=== PATIENT | male | born 1955 | race Caucasian/White ===

== ENCOUNTER 2021-04-03 15:54 | Emergency (ER) | payer MEDICARE, MEDICAID, SELFPAY ==
--- NOTE | ~2021-04-03 | CT_ITS ---
EXAMINATION: CT ABDOMEN AND PELVIS WITHOUT CONTRAST CLINICAL INFORMATION: Left lower quadrant pain. COMPARISON: None TECHNIQUE: Multidetector volumetric imaging was performed from the superior aspect of the liver through the pubic symphysis. Sagittal and coronal reformatted images were obtained on the technologist's workstation. This CT examination was performed using dose optimization techniques as appropriate, variously including the following: *Automated exposure control *Adjustment of mA and/or kV according to patient size (this includes techniques or standardized protocols for targeted exams where dose is matched to indication/reason for exam; i.e. extremities or head) *Use of iterative reconstruction technique DLP: 575 mGy-cm FINDINGS: LUNG BASES: The lung bases are clear. 4 mm nodule is seen in the right lower lobe axial image 4/6. Heart size is normal. LIVER, GALLBLADDER, AND BILIARY TREE: The liver is normal in size, shape, and attenuation. No focal hepatic lesion or biliary ductal dilatation is present. The gallbladder is unremarkable with no evidence of radiopaque gallstones, gallbladder wall thickening, or obvious pericholecystic inflammatory changes. PANCREAS: Unremarkable. SPLEEN: Unremarkable. ADRENAL GLANDS: Unremarkable. KIDNEYS AND URETERS: The kidneys are normal in size, shape, and attenuation. There is a partially exophytic 8 mm cyst upper pole right kidney. A nonobstructive 4 mm radiopaque calculi seen midpole right kidney and 8 tubular radiopaque calculi lower pole left kidney. There is no caliectasis or hydronephrosis.. BLADDER: Unremarkable. GASTROINTESTINAL TRACT: There is fluid-filled small bowel loops and colon without distention. No free air or free fluid.. Appendix is not visualized. The stomach is nondistended. ABDOMINAL WALL: No significant hernia is appreciated. LYMPH NODES: Normal. VASCULAR: Unremarkable. PELVIC VISCERA: The prostate gland is mildly enlarged. OSSEOUS STRUCTURES: No lytic or sclerotic process seen. Grade 1 anterolisthesis L4 over L5.. CT/CT abdomen pelvis wo con IMPRESSION: Fluid-filled small bowel loops and colon but no distention or air fluid seen. No fat stranding seen. Question low-grade enterocolitis. Nonobstructive bilateral radiopaque renal calculi. No hydronephrosis seen
[2021-04-03 16:00] VITALS: BP 118/82; PULSE 109; O2SAT 100
[2021-04-03 16:05] VITALS: BP 112/88; PULSE 129; RESP 16; TEMP 36.6; O2SAT 98; BMI 18.6
[2021-04-03] MEDS: Ondansetron ODT 4 MG TAB.RAPDIS PO (16:12)
--- NOTE | 2021-04-03 17:53 | ED.ABDPAIN ---
HPI - Abdominal Pain General Chief Complaint: Abdominal Pain Stated Complaint: abd pain Time Seen by Provider: 04/03/21 17:36 Source: patient Mode of arrival: EMS Limitations: no limitations History of Present Illness HPI narrative: Patient with chronic abdominal pain since age 10 usually goes to [facility] last visit was a month ago for similar pain in abdomen multiple CT scan workup colonoscopy endoscopy were negative patient comes in by ambulance for the 1st time for similar pain started an hour ago with us with nausea and dizziness also patient has chronic cervical problem and left-sided tingling seen a cardiology clinical nurse specialist patient denies any diarrhea no nausea no fever no chills Related Data Home Medications Medication Instructions Recorded Confirmed acetaminophen 325 mg tablet 975 mg PO DAILY 04/03/21 04/03/21 (Tylenol) albuterol sulfate 90 mcg/actuation 2 puff PO Q4H PRN 04/03/21 04/03/21 aerosol inhaler amitriptyline 25 mg tablet 1 tab PO BEDTIME 04/03/21 04/03/21 atorvastatin 20 mg tablet 1 tab PO DAILY 04/03/21 04/03/21 lisinopril 40 mg tablet 1 tab PO DAILY 04/03/21 04/03/21 omeprazole 20 mg capsule,delayed 1 cap PO DAILY 04/03/21 04/03/21 release Previous Rx's Medication Instructions Recorded ciprofloxacin HCl 500 mg tablet 500 mg PO BID #20 tab 04/03/21 (Cipro) dicyclomine 20 mg tablet 20 mg PO QID PRN #20 tab 04/03/21 metronidazole 500 mg tablet 500 mg PO BID #20 tab 04/03/21 (Flagyl) Allergies Allergy/AdvReac Type Severity Reaction Status Date / Time No Known Allergies Allergy Verified 04/03/21 19:06 Review of Systems Review of Systems Yes all other systems are reviewed and are negative Physical Exam Vital Signs: Vital Signs: Last Vital Signs Temp 97.9 F 04/03/21 20:10 Pulse 86 04/03/21 23:01 Resp 16 04/03/21 23:01 BP 151/84 H 04/03/21 23:01 Pulse Ox 96 04/03/21 23:01 Body Mass Index 18.6 Appearance: Alert. Oriented X3. No acute distress. Eyes: PERRLA, No Nystagmus ENT: Pharynx normal. Oral Mucosa moist Neck: Normal inspection. Neck supple. CVS: Normal heart rate and rhythm. Pulses normal. Respiratory: No respiratory distress. Equal air entry bilateral, no wheezing/rales/rhonchi Abdomen: Soft . tenderness llq +Bowel sounds are present, no mass palpable, no CVA tenderness Skin: Skin warm and dry. Normal skin color. Normal skin turgor. Extremities: No lower extremity edema. No calf tenderness Neuro: Oriented X 3. No motor deficit. No sensory deficit.No cerebellar signs , cranial nerves II-XII intact MDM - Abdominal Pain MDM Narrative Medical decision making narrative: Patient was localized colitis/enteritis patient denies any diarrhea fight counts a slightly elevated to 16.9 also creatinine is 1.6. Patient received IV fluids p.o. antibiotics Cipro and Flagyl advised to follow with PCP Lab Data Attestation: I reviewed the patient's lab results. Result diagrams: 04/03/21 18:26 04/03/21 18:26 Labs: Lab Results 04/03/21 04/03/21 04/03/21 Range/Units 18:26 18:26 19:11 WBC 16.9 H (4.8-10.8) X10*3/uL RBC 5.92 H (4.60-5.80) X10*6/uL Hgb 18.2 H (14.0-18.0) g/dl Hct 54.1 H (42-52) % MCV 91.4 (80-98) fL MCH 30.7 (27.0-33.0) pg MCHC 33.6 (31.0-36.0) g/dl RDW 13.8 (11.0-16.0) % Plt Count 266 (160-400) X10*3/uL MPV 10.6 (9.4-12.4) fL Immature Gran % (Auto) 0.8 H (0.0-0.4) % Neut % (Auto) 86.1 H (45-73) % Lymph % (Auto) 7.4 L (20-40) % [place] % (Auto) 4.9 (2-11) % Eos % (Auto) 0.4 (0-4) % Baso % (Auto) 0.4 (0-2) % Lymph # (Auto) 1.2 (1.2-4.9) X10*3/uL [place] # (Auto) 0.8 (0.1-1.2) X10*3/uL Eos # (Auto) 0.1 (0.0-0.4) X10*3/uL Baso # (Auto) 0.1 (0.0-0.2) X10*3/uL Abs Immat Gran (auto) 0.14 H (0.00-0.03) X10*3/uL Absolute Neuts (auto) 14.5 H (2.0-8.3) X10*3/uL Absolute Nucleated RBC 0.000 (0.0-0.012) X10*3/uL Nucleated RBC % (auto) 0.0 (0.0-0.2) /100WBC Sodium 139 (135-145) mmol/L Potassium 5.2 H (3.3-5.1) mmol/L Chloride 104 (96-108) mmol/L Carbon Dioxide 18 L (22-29) mmol/L Anion Gap 22 H (12-20) BUN 14 (9-16) mg/dL Creatinine 1.66 H (0.5-1.4) mg/dL Estim Creat Clear Calc 47.0 Estimated GFR 42 Random Glucose 152 H (60-115) mg/dL Calcium 10.1 (8.4-10.2) mg/dL Total Bilirubin 0.5 (0.0-1.0) mg/dL Direct Bilirubin < 0.2 (0.0-0.5) mg/dL AST 23 (5-37) U/L ALT 13 (0-40) U/L Alkaline Phosphatase 91 (39-117) U/L Total Protein 7.7 (6.5-8.0) g/dL Albumin 4.4 (3.5-5.0) g/dL Lipase 16 (8-78) U/L Urine Color Urine Appearance Urine pH (5.0-8.0) Ur Specific [place] (1.005-1.025) Urine Protein (NEG-TRACE) MG/DL Urine Glucose (UA) (NEG) MG/DL Urine Ketones (NEG) MG/DL Urine Blood (NEG) Urine Nitrite (NEG) Ur Leukocyte Esterase (NEG) COVID-19 (YENY) Negative (Negative) COVID-19 Clin Com See Note 04/03/21 Range/Units 21:59 WBC (4.8-10.8) X10*3/uL RBC (4.60-5.80) X10*6/uL Hgb (14.0-18.0) g/dl Hct (42-52) % MCV (80-98) fL MCH (27.0-33.0) pg MCHC (31.0-36.0) g/dl RDW (11.0-16.0) % Plt Count (160-400) X10*3/uL MPV (9.4-12.4) fL Immature Gran % (Auto) (0.0-0.4) % Neut % (Auto) (45-73) % Lymph % (Auto) (20-40) % [place] % (Auto) (2-11) % Eos % (Auto) (0-4) % Baso % (Auto) (0-2) % Lymph # (Auto) (1.2-4.9) X10*3/uL [place] # (Auto) (0.1-1.2) X10*3/uL Eos # (Auto) (0.0-0.4) X10*3/uL Baso # (Auto) (0.0-0.2) X10*3/uL Abs Immat Gran (auto) (0.00-0.03) X10*3/uL Absolute Neuts (auto) (2.0-8.3) X10*3/uL Absolute Nucleated RBC (0.0-0.012) X10*3/uL Nucleated RBC % (auto) (0.0-0.2) /100WBC Sodium (135-145) mmol/L Potassium (3.3-5.1) mmol/L Chloride (96-108) mmol/L Carbon Dioxide (22-29) mmol/L Anion Gap (12-20) BUN (9-16) mg/dL Creatinine (0.5-1.4) mg/dL Estim Creat Clear Calc Estimated GFR Random Glucose (60-115) mg/dL Calcium (8.4-10.2) mg/dL Total Bilirubin (0.0-1.0) mg/dL Direct Bilirubin (0.0-0.5) mg/dL AST (5-37) U/L ALT (0-40) U/L Alkaline Phosphatase (39-117) U/L Total Protein (6.5-8.0) g/dL Albumin (3.5-5.0) g/dL Lipase (8-78) U/L Urine Color YELLOW Urine Appearance CLEAR Urine pH 6.0 (5.0-8.0) Ur Specific [place] 1.020 (1.005-1.025) Urine Protein NEG (NEG-TRACE) MG/DL Urine Glucose (UA) NEG (NEG) MG/DL Urine Ketones NEG (NEG) MG/DL Urine Blood NEG (NEG) Urine Nitrite NEG (NEG) Ur Leukocyte Esterase NEG (NEG) COVID-19 (YENY) (Negative) COVID-19 Clin Com Discharge Plan Discharge Clinical Impression: Enterocolitis Patient Disposition: Home, Self-Care Instructions: Colitis (ED) Additional Instructions: Drink plenty of fluids Take antibiotics and pain medicine as prescribed Report to the ER/PCP if increased pain fever vomiting Prescriptions: New dicyclomine 20 mg tablet 20 mg PO QID PRN (Reason: abdominal pain) Qty: 20 RF: 0 ciprofloxacin HCl [Cipro] 500 mg tablet 500 mg PO BID Qty: 20 RF: 0 metronidazole [Flagyl] 500 mg tablet 500 mg PO BID Qty: 20 RF: 0 No Action atorvastatin 20 mg tablet 1 tab PO DAILY RF: 0 amitriptyline 25 mg tablet 1 tab PO BEDTIME RF: 0 omeprazole 20 mg capsule,delayed release(DR/EC) 1 cap PO DAILY RF: 0 albuterol sulfate 90 mcg/actuation HFA aerosol inhaler 2 puff PO Q4H PRN (Reason: Shortness Of Breath) RF: 0 lisinopril 40 mg tablet 1 tab PO DAILY RF: 0 acetaminophen [Tylenol] 325 mg Tablet 975 mg PO DAILY RF: 0 Interventions: ED Discharge Assessment Last Done: 04/03/21 23:10 Discharge Date/Time: 04/03/21 23:11 [facility] Social History Social History Use of substances other than those prescribed or required for medical reasons: Yes Substance Use Type: Marijuana Advance Directives: No Advance Directives Information Provided: No
[2021-04-03 18:30] LABS: Basophils Absolute Auto 0.1 X10*3/uL (0.0-0.2); Basophils Percent Auto 0.4 % (0-2); Eosinophils Absolute Auto 0.1 X10*3/uL (0.0-0.4); Eosinophils Percent Auto 0.4 % (0-4); Hematocrit 54.1 % (42-52); Hemoglobin 18.2 g/dl (14.0-18.0); Imm Gran Abs Auto 0.14 X10*3/uL (0.00-0.03); Imm Gran Pct Auto 0.8 % (0.0-0.4); Lymphocytes Absolute Auto 1.2 X10*3/uL (1.2-4.9); Lymphocytes Percent Auto 7.4 % (20-40); MANUAL DIFF FLAG NO; Mean Corpuscular HGB Conc 33.6 g/dl (31.0-36.0); Mean Corpuscular Hemoglobin 30.7 pg (27.0-33.0); Mean Corpuscular Volume 91.4 fL (80-98); Mean Platelet Volume 10.6 fL (9.4-12.4); Monocytes Absolute Auto 0.8 X10*3/uL (0.1-1.2); Monocytes Percent Auto 4.9 % (2-11); Neutrophils Absolute Auto 14.5 X10*3/uL (2.0-8.3); Neutrophils Percent Auto 86.1 % (45-73); Platelet Count 266 X10*3/uL (160-400); Red Blood Count 5.92 X10*6/uL (4.60-5.80); Red Cell Distribution Width 13.8 % (11.0-16.0); White Blood Count 16.9 X10*3/uL (4.8-10.8)
[2021-04-03 19:01] LABS: Alanine Aminotransferase 13 U/L (0-40); Albumin Level 4.4 g/dL (3.5-5.0); Alkaline Phosphatase 91 U/L (39-117); Anion Gap 22 (12-20); Aspartate Amino Transferase 23 U/L (5-37); Bilirubin Direct < 0.2 mg/dL (0.0-0.5); Bilirubin Total 0.5 mg/dL (0.0-1.0); Blood Urea Nitrogen 14 mg/dL (9-16); Calcium 10.1 mg/dL (8.4-10.2); Carbon Dioxide 18 mmol/L (22-29); Chloride 104 mmol/L (96-108); Estimated Glomerular Filt Rate 42; Glucose Random 152 mg/dL (60-115); Lipase 16 U/L (8-78); Potassium 5.2 mmol/L (3.3-5.1); Sodium 139 mmol/L (135-145); Total Protein 7.7 g/dL (6.5-8.0)
[2021-04-03] MEDS: Morphine Sulfate 4 MG/ML CARTRIDGE IVPUSH (19:07)
[2021-04-03] MEDS: 0.9 % Sodium Chloride 1,000 ML 999 ML IVCONT ×2 (19:07→19:20)
[2021-04-03 19:14] VITALS: BP 140/69; PULSE 97; RESP 18; TEMP 36.8; O2SAT 100
[2021-04-03] MEDS: ondansetron HCL 4 MG/2 ML VIAL IVPUSH (19:19)
--- NOTE | 2021-04-03 20:01 | PC.NURSE ---
This RN to bedside at ~1900. Pt resting on stretcher, appears uncomfortable, is moaning and c/o LLQ abd pain. This RN states Hi- to introduce self and pt interrupts and states I wish I were. This RN asks pt what he means and pt states I wish I were high. I last smoked weed last night. Pt reports severe LLQ abd pain with associated nausea. This RN obtained PIV, medicated per SEP. Pt went to ED CT for imaging, returned without incidence. Awaiting CT results/dispo. Pt aware and agreeable to plan at htis time. Stretcher low locked, rails raised, call garcia within reach
[2021-04-03 20:10] VITALS: BP 131/76; PULSE 93; RESP 18; TEMP 36.6; O2SAT 98
[2021-04-03 21:19] LABS: COVID-19 Test Negative (Negative)
[2021-04-03 21:50] VITALS: BP 134/77; PULSE 92; RESP 16; O2SAT 97
[2021-04-03 22:06] LABS: Appearance Urine CLEAR; Color Urine YELLOW; Glucose Urine UA NEG (NEG); Leukocyte Esterase Urine NEG (NEG); Nitrite Urine NEG (NEG); Urine Blood NEG (NEG); Urine Ketones NEG (NEG); Urine Protein NEG (NEG-TRACE)
[2021-04-03] MEDS: levoFLOXacin 500 MG TABLET PO (22:33)
[2021-04-03] MEDS: metroNIDAZOLE 500 MG TABLET PO (22:33)
[2021-04-03 23:01] VITALS: BP 151/84; PULSE 86; RESP 16; O2SAT 96
== END 2021-04-03 23:11 | disposition home or self-care (01) ==
PROVIDERS: Emergency Provider Internal Medicine
DX: K52.9 Noninfective gastroenteritis and colitis, unspecified (principal); Z20.822 Contact with and (suspected) exposure to COVID-19; Z79.899 Other long term (current) drug therapy
CPT/HCPCS: 36415; 74176; 80048; 80076; 81003; 83690; 85025; 87635; 96361; 96374; 96375; 99284; 99285; J2270; J2405

== ENCOUNTER 2024-08-18 15:38 | Emergency (ER) | payer MEDICARE, MEDICAID, SELFPAY ==
--- NOTE | ~2024-08-18 | CT_ITS ---
CLINICAL HISTORY: fall, +HS, pain CT cervical spine without contrast Comparison: None Findings: Mild multilevel anterolisthesis, degenerative. No fracture. No severe central spinal canal stenosis. No epidural hematoma. Normal thickness of the prevertebral soft tissues. Paraseptal emphysema measuring up to 2.5 cm. Confluent centrilobular emphysema. Mild scarring at the lung apices. Impression: No acute findings. This document has been electronically signed by: Mercy Florence MD on 08/18/2024 20:35:02
--- NOTE | ~2024-08-18 | CT_ITS ---
CLINICAL HISTORY: fall, +HS CT head without contrast Comparison: None Findings: No acute hemorrhage. No extra-axial fluid collection. No hydrocephalus, mass-effect or herniation. Correa-white differentiation is maintained. There is patchy hypoattenuation of the periventricular and deep white matter, which is most likely the sequela of mild chronic small vessel ischemic disease. No acute orbital pathology. No acute soft tissue abnormality. No fracture. The visualized paranasal sinuses are predominantly clear. The mastoid air cells are clear. Impression: No acute findings. This document has been electronically signed by: Mercy Florence MD on 08/18/2024 20:17:03
--- NOTE | ~2024-08-18 | XR_ITS ---
CLINICAL HISTORY: fall, pain Radiographs of the pelvis and bilateral hips, 5 views, 6 images Comparison: CT/[place] - CT ABDOMEN PELVIS WO CON - 04/03/21 19:29 EDT Findings: No fracture or dislocation. Mild degenerative change. Bone mineralization is normal. No radiographically apparent soft tissue swelling. Impression: No fracture. This document has been electronically signed by: Mercy Florence MD on 08/18/2024 17:10:35
--- NOTE | ~2024-08-18 | CT_ITS ---
CLINICAL HISTORY: fall, pain, TTP L2-L4 CT lumbar spine without contrast Comparison: None Findings: 5 mm anterolisthesis of L4 on L5, degenerative. No acute fracture. Multilevel degenerative change is most prominent at L4/L5 with severe central spinal canal stenosis. No epidural hematoma. No acute soft tissue abnormality or acute findings in the visualized abdomen and pelvis. Impression: No acute findings. Grade 1 anterolisthesis of L4 on L5, degenerative, with severe central spinal canal stenosis. This document has been electronically signed by: Mercy Florence MD on 08/18/2024 21:05:58
--- NOTE | ~2024-08-18 | CT_ITS ---
CLINICAL HISTORY: fall, midline TTP T4-T7 T10-T12 CT thoracic spine without contrast Comparison: None Findings Alignment is preserved. No acute fracture. No severe spinal canal stenosis. No epidural hematoma. No acute soft tissue abnormality or acute findings in the visualized chest and abdomen. Impression: No acute findings. This document has been electronically signed by: Mercy Florence MD on 08/18/2024 20:38:20
[2024-08-18 15:55] VITALS: BP 180/80; PULSE 90; RESP 16; TEMP 36.9; O2SAT 98; BMI 17.9
--- NOTE | 2024-08-18 16:27 | ED_ITS ---
HPI - Fall General Chief Complaint: Fall Stated Complaint: FALL WITH BACK PAIN + COLLAR Time Seen by Provider: 08/18/24 16:05 Source: patient Limitations: no limitations History of Present Illness ED Provider: Whitney Schmidt NP HPI Narrative: Patient is a 68-year-old male presents to the emergency department via EMS for evaluation. He reports mechanical slip and fall on the ice at 10:30 this morning. He states that he fell landing onto his left side. He is not certain whether there was any head strike denies any loss consciousness. He required assistance from a friend to get up from the ground to help him to walk inside. He attempted to lie down for some time but continued to have pain which brought him to an urgent care and he was ultimately transferred here for further evaluation. Was placed in the hard cervical spine collar. He generally reports pain diffusely throughout his body, a primary locations of pain are throughout the entirety of the spine from the neck to the lumbar region and the bilateral hips. He denies any numbness or tingling to the extremities. He did not take any OTC analgesics for pain Related Data Home Medications ?Medication ?Instructions ?Recorded ?Confirmed acetaminophen 325 mg tablet 975 mg PO DAILY 04/03/21 04/03/21 (Tylenol) albuterol sulfate 90 mcg/actuation 2 puff PO Q4H PRN Shortness Of 04/03/21 04/03/21 aerosol inhaler Breath amitriptyline 25 mg tablet 1 tab PO BEDTIME 04/03/21 04/03/21 atorvastatin 20 mg tablet 1 tab PO DAILY 04/03/21 04/03/21 lisinopril 40 mg tablet 1 tab PO DAILY 04/03/21 04/03/21 omeprazole 20 mg capsule,delayed 1 cap PO DAILY 04/03/21 04/03/21 release Previous Rx's ?Medication ?Instructions ?Recorded ciprofloxacin HCl 500 mg tablet 500 mg PO BID #20 tabs 04/03/21 (Cipro) dicyclomine 20 mg tablet 20 mg PO QID PRN abdominal pain 04/03/21 #20 tabs metronidazole 500 mg tablet 500 mg PO BID #20 tabs 04/03/21 (Flagyl) Allergies Allergy/AdvReac Type Severity Reaction Status Date / Time No Known Allergies Allergy Verified 08/18/24 16:04 Review of Systems Review of Systems: Yes all other systems are reviewed and are negative PMFSH Past Medical History Attestation statement: The following information was validated with the patient. Source: old records reviewed Social History Social History Substance Use Type: Marijuana Advance Directives: No Advance Directives Information Provided: No Physical Exam Vital Signs: Vital Signs: Last Vital Signs Temp 97.7 F 08/18/24 20:25 Pulse 97 08/18/24 20:25 Resp 18 08/18/24 20:25 BP 180/110 H 08/18/24 20:25 Pulse Ox 98 08/18/24 20:25 O2 Del Method Room Air 08/18/24 20:25 BMI result Body Mass Index 17.9 Appearance: Alert.?Oriented to person, place and time. No acute distress.?Normal affect. Head: Normocephalic, atraumatic Eyes: Pupils equal, round and reactive to light.? EOMI. No palpable periorbital deformities or ecchymosis ENT: Pharynx normal.??TM normal bilaterally. No rhinorrhea. No septal hematoma. TM normal bilaterally Neck: Normal inspection.? Neck supple.??No midline cervical spine tenderness, step-offs, deformities. Back: Tenderness upon palpation no along the midline of T4-T7, T10-T12, L2-L4. No thoracic or lumbar spine step-offs, deformities. CVS: Heart sounds normal. Normal heart rate and rhythm.? Pulses normal.?? Respiratory: No respiratory distress.? Lung sounds clear to auscultation bilaterally?? Abdomen: Soft and non-tender. Normoactive bowel sounds Skin: Skin warm and dry.? Normal skin color.? Extremities: No lower extremity edema.? No calf ttp. Full range of motion to bilateral upper extremities. Full range of motion to bilateral ankles and knees. Decreased AROM to bilateral hips, though able to flex to approximately 35-45 degrees limited by pain. 2+ DP/PT pulse, 2+ radial pulse bilaterally. Neuro: Moves all extremities spontaneously. Sensation intact bilaterally. CN II- XII intact. No focal neuro deficits. Course Reevaluation(s) Reevaluation #1: Patient is leaving against medical advice at this time. CT of the head is without acute intracranial pathology. CT imaging of the cervical/lumbar/thoracic spine are pending at this time. Patient self removed his hard cervical spine collar. We did discuss the potential risk of consequences of mouth treated fractures of the neck/spine, including potentially life-threatening changes, paralysis. He verbalizes understanding. He states he needs to leave at this time as he will not have a ride home later this evening. We discussed strict return precautions, outpatient follow up with his primary care doctor. Time: 20:24 Medications Administered Discontinued Medications Generic Name Dose Route Start Last Admin Trade Name Julio César PRN Reason Stop Dose Admin Acetaminophen 975 mg 08/18/24 16:24 08/18/24 17:02 Acetaminophen 325 Mg Tablet PO 08/18/24 16:25 975 mg ONCE ONE Administration Ibuprofen 600 mg 08/18/24 18:20 08/18/24 19:12 Ibuprofen 600 Mg Tablet PO 08/18/24 18:21 600 mg ONCE ONE Administration Medical Decision Making Medical Decision Making [facility] Narrative: Patient is a 68-year-old male who presents emergency department for evaluation after mechanical slip and fall on the ice with resultant pain diffusely througho ut the neck and spine across the lower back and into the bilateral hips as per HPI. He does endorse generalized pain all over. However he has full range of motion to the bilateral upper extremities, bilateral knees and ankles with mild decreased AROM to the bilateral hips. Extremities are all neurovascularly intact distally. He has no focal neurological deficits. He is not on any anticoagulants nor does he have any known coagulation disorder. He is not certain whether there was any head strike but there was no loss of consciousness. Given his age and mechanism of injury obtaining CT of the head to exclude ICH, SDH, CT of the cervical spine/thoracic spine/lumbar spine to exclude fracture/subluxation. XR of the bilateral hips and pelvis to exclude fracture/dislocation. Will trial acetaminophen for analgesia at this time, and plan for reassessment should you require anything additional we will address accordingly. No symptoms preceding the fall strictly mechanical in nature. Wo uld defer serum labs at this time. Differential Diagnosis Differential Diagnoses: The differential diagnosis associated with the presentat ion includes (See narrative above) Admission/Observation Consideration of admission/observation: Escalation of care including admission/observation considered (See narrative above and course narrative for further detail) Radiology Impression Discussion of test interpretation with radiology: I have reviewed the radiologist's reading. Radiologist Impression: Radiographs of the pelvis and bilateral hips, 5 views, 6 images Comparison: CT/[place] - CT ABDOMEN PELVIS WO CON - 04/03/21 19:29 EDT Findings: No fracture or dislocation. Mild degenerative change. Bone mineralization is normal. No radiographically apparent soft tissue swelling. Impression: No fracture. CT head without contrast Comparison: None Findings: No acute hemorrhage. No extra-axial fluid collection. No hydrocephalus, mass-effect or herniation. Correa-white differentiation is maintained. There is patchy hypoattenuation of the periventricular and deep white matter, which is most likely the sequela of mild chronic small vessel ischemic disease. No acute orbital pathology. No acute soft tissue abnormality. No fracture. The visualized paranasal sinuses are predominantly clear. The mastoid air cells are clear. Impression: No acute findings. CT cervical spine without contrast Comparison: None Findings: Mild multilevel anterolisthesis, degenerative. No fracture. No severe central spinal canal stenosis. No epidural hematoma. Normal thickness of the prevertebral soft tissues. Paraseptal emphysema measuring up to 2.5 cm. Confluent centrilobular emphysema. Mild scarring at the lung apices. Impression: No acute findings. CT thoracic spine without contrast Comparison: None Findings Alignment is preserved. No acute fracture. No severe spinal canal stenosis. No epidural hematoma. No acute soft tissue abnormality or acute findings in the visualized chest and abdomen. Impression: No acute findings. CT lumbar spine without contrast Comparison: None Findings: 5 mm anterolisthesis of L4 on L5, degenerative. No acute fracture. Multilevel degenerative change is most prominent at L4/L5 with severe central spinal canal stenosis. No epidural hematoma. No acute soft tissue abnormality or acute findings in the visualized abdomen and pelvis. Impression: No acute findings. Grade 1 anterolisthesis of L4 on L5, degenerative, with severe central spinal canal stenosis. Independent Historian Clinical information obtained from an independent historian. History obtained from or confirmed by: EMS External Record Review External record reviewed: Outpatient record Discharge Plan Discharge Clinical Impression: Acute head injury without loss of consciousness Patient Disposition: Left Against Medical Advice Additional Instructions: It was recommended that you remain in the emergency department for the remainder of your test results to come back. CT scan of your head does not show any evidence of bleeding into the skull which is reassuring. CT imaging is still pending at this time in regards to your back. Fractures to the neck and back can be severe and potentially life-threatening, is recommended that you remain in the emergency department until these results are back, however you are leaving against medical advice at this time. There is no evidence of fracture in your hips/pelvis. Please follow-up with your primary care doctor. You may return with any new or worsening symptoms or concerns Prescriptions: No Action atorvastatin 20 mg tablet 1 tab PO DAILY amitriptyline 25 mg tablet 1 tab PO BEDTIME omeprazole 20 mg capsule,delayed release(DR/EC) 1 cap PO DAILY albuterol sulfate 90 mcg/actuation HFA aerosol inhaler 2 puff PO Q4H PRN (Reason: Shortness Of Breath) lisinopril 40 mg tablet 1 tab PO DAILY acetaminophen [Tylenol] 325 mg Tablet 975 mg PO DAILY dicyclomine 20 mg tablet 20 mg PO QID PRN (Reason: abdominal pain) Qty: 20 0RF ciprofloxacin HCl [Cipro] 500 mg tablet 500 mg PO BID Qty: 20 0RF metronidazole [Flagyl] 500 mg tablet 500 mg PO BID Qty: 20 0RF Referrals: Physician,Unknown J [Primary Care Provider] - Stand Alone Forms: Against Medical Advice Interventions: ED Discharge Assessment Last Done: 08/18/24 20:25 Discharge Date/Time: 08/18/24 20:32 Print Language: Korean
[2024-08-18] MEDS: Acetaminophen 325 MG TABLET 975 MG PO (17:02)
--- NOTE | 2024-08-18 17:57 | PC.NURSE ---
pt is awaiting ct. he reports little relief with po tylenol, this chely tarango make provider aware. no other changes to pt presentation.
[2024-08-18] MEDS: Ibuprofen 600 MG TABLET PO (19:12)
[2024-08-18 20:25] VITALS: BP 180/110; PULSE 97; RESP 18; TEMP 36.5; O2SAT 98
== END 2024-08-18 20:32 | disposition left against medical advice (07) ==
PROVIDERS: Emergency Provider Emergency Medicine Emergency Medical Services
DX: S09.90XA Unspecified injury of head, initial encounter (principal); M54.2 Cervicalgia; R51.9 Headache, unspecified; M25.552 Pain in left hip; M25.551 Pain in right hip; M54.50 Low back pain, unspecified; R07.89 Other chest pain; W00.0XXA Fall on same level due to ice and snow, initial encounter; Y93.89 Activity, other specified; Y92.9 Unspecified place or not applicable; Y99.8 Other external cause status; Z79.899 Other long term (current) drug therapy
CPT/HCPCS: 70450; 72125; 72128; 72131; 73521; 99283; 99284

== ENCOUNTER → 2024-08-18 16:26 | Outpatient (BNV) | payer MEDICARE, MEDICAID, SELFPAY | PROVIDERS: Emergency Provider Emergency Medicine Emergency Medical Services; Visit Provider Radiology Diagnostic Radiology | DX: M54.2 Cervicalgia (principal); M54.9 Dorsalgia, unspecified; M54.50 Low back pain, unspecified; M25.551 Pain in right hip; M25.552 Pain in left hip | CPT/HCPCS: 70450; 72125; 72128; 72131; 73521 ==